=== PATIENT | female | born 1970 | race Hispanic/Latino ===

== ENCOUNTER 2017-08-08 13:43 | Emergency (ER) | payer MEDICARE ==
[2017-08-08 13:43] VITALS: BMI 29.8
[2017-08-08 14:14] VITALS: PULSE 70; RESP 18; TEMP 98.1; O2SAT 98
--- NOTE | 2017-08-08 15:13 | ED PDOC ---
HPI: General Adult Time Seen by Provider: 08/08/17 15:12 Chief Complaint (Nursing): Trauma Chief Complaint (Provider): HEADACHE/NECK PAIN History Per: Patient (46 Y/O FEMALE FELL YESTERDAY TRIP AND LAND BY CHAIR. NOTES PAIN BY NECK AND HEAD. UNABLE TO SEE DR. [facility]ERRA [facility] TODAY DUE TO PAIN. TOOK MOTRIN/BACLOFEN AT 8AM WITHOUT RELIEF.) Past Medical History Reviewed: Historical Data, Nursing Documentation, Vital Signs Vital Signs: Last Vital Signs Temp 98.1 F 08/08/17 14:09 Pulse 70 08/08/17 14:09 Resp 18 08/08/17 14:09 BP 136/96 H 08/08/17 17:36 Pulse Ox 98 08/08/17 17:32 - Medical History PMH: Anxiety, Asthma, Back Problems (chronic low back pain), Depression, Diabetes, HTN, Hypercholesterolemia, Migraine Denies: HIV, Chronic Kidney Disease - Surgical History Surgical History: Back Surgery, Cholecystectomy (pt. states in either November/December 2015) - Family History Family History: States: Unknown Family Hx - Home Medications Home Medications: Ambulatory Orders Medication Instructions Recorded ALPRAZolam [Xanax] 1 mg PO TID PRN 08/18/14 Albuterol Sulfate [Proair Hfa] 2 puff IH Q6H PRN 03/26/15 Enalapril Maleate 20 mg PO DAILY 09/23/15 Oxycodone HCl/Acetaminophen 1 tab PO Q8H PRN 09/23/15 [Percocet 10-325 mg Tablet] ALPRAZolam [Xanax] 1 mg PO TID PRN #90 tab 09/02/16 Albuterol HFA [Ventolin HFA 90 2 puff INH RQ4 PRN #0 inhaler 09/02/16 mcg/actuation (8 g)] Cyclobenzaprine [Flexeril] 10 mg PO TID PRN #60 tab 09/02/16 Enalapril Maleate [Vasotec] 20 mg PO DAILY tab 09/02/16 Gabapentin [Neurontin] 300 mg PO TID #90 cap 09/02/16 MetFORMIN [glucoPHAGE] 1,000 mg PO BIDWM #60 tab 09/02/16 SITagliptin [Januvia] 100 mg PO DAILY #30 tab 09/02/16 Naproxen 1 tab PO Q12 PRN #10 tab 08/08/17 - Allergies Allergies/Adverse Reactions: Allergies Allergy/AdvReac Type Severity Reaction Status Date / Time No Known Allergies Allergy Verified 05/17/15 22:19 Review of Systems ROS Statement: Except As Marked, All Systems Reviewed And Found Negative Physical Exam - Reviewed Nursing Documentation Reviewed: Yes Vital Signs Reviewed: Yes - Physical Exam Appears: Positive for: Well, Non-toxic, No Acute Distress Head Exam: Positive for: ATRAUMATIC, NORMAL INSPECTION, NORMOCEPHALIC Skin: Positive for: Normal Color, Warm, DRY Eye Exam: Positive for: EOMI, Normal appearance, PERRL ENT: Positive for: Normal ENT Inspection Neck: Positive for: Normal (PARACERVICAL TENDERNESS), Painless ROM Cardiovascular/Chest: Positive for: Regular Rate, Rhythm Respiratory: Positive for: CNT, Normal Breath Sounds Gastrointestinal/Abdominal: Positive for: Normal Exam, Bowel Sounds, Soft Pelvic Exam: Positive for: Other (LEFT LOWER PARALUMBAR TENDERNESS) Back: Positive for: Normal Inspection Extremity: Positive for: Normal ROM Neurologic/Psych: Positive for: Alert, Oriented - ECG O2 Sat by Pulse Oximetry: 98 - Progress ED Course And Treament: HEAD INJURY: NAD CT C SPINE: NO ACUTE FX DILAUDID 1 MG IM X 1 DOSE REPEAT BP 130/96 PATIENT NOTES H/O MIGRAINES AND PERSISTENT HEADACHE DESPITE DILAUDID. REGLAN 10 MG IV X 1 DOSE ORDERED/ NS 1 LITER WIDE OPEN ORDERED PATIENT UPON RE-EVALUATION BY NURSE STATES SHE WOULD PREFER TO GO HOME AND TAKE MOTRIN THEN. Disposition - Clinical Impression Clinical Impression: Head injury - Patient ED Disposition Is Patient to be Admitted: No - Disposition Disposition: Routine/Home Disposition Time: 17:22 Condition: FAIR Prescriptions: Naproxen 1 tab PO Q12 PRN #10 tab PRN Reason: Pain, Moderate (4-7) Instructions: Head Injury (ED), Chronic Back Pain (ED) Forms: [employer] ([place]ian)
--- NOTE | 2017-08-08 17:11 | CT ---
PROCEDURE: CT HEAD WITHOUT CONTRAST. HISTORY: Head injury COMPARISON: 05/17/2015 TECHNIQUE: Axial computed tomography images were obtained through the head/brain without intravenous contrast. Radiation dose: Total exam DLP = 833.10 mGy-cm. This CT exam was performed using one or more of the following dose reduction techniques: Automated exposure control, adjustment of the mA and/or kV according to patient size, and/or use of iterative reconstruction technique. FINDINGS: HEMORRHAGE: No intracranial hemorrhage. BRAIN: No mass effect or edema. No atrophy or chronic microvascular ischemic changes. VENTRICLES: Unremarkable. No hydrocephalus. CALVARIUM: Unremarkable. PARANASAL SINUSES: Unremarkable as visualized. No significant inflammatory changes. MASTOID AIR CELLS: Unremarkable as visualized. No inflammatory changes. OTHER FINDINGS: None. IMPRESSION: No acute intracranial abnormalities. No significant findings to account for the clinical presentation. No significant interval change compared to the prior examination(s).
--- NOTE | 2017-08-08 17:15 | CT ---
PROCEDURE: CT Cervical Spine without contrast HISTORY: Head injury COMPARISON: 10/29/2012. TECHNIQUE: Axial computed tomography images were obtained of the cervical spine without the use of intravenous contrast. Coronal and sagittal reformatted images were created and reviewed. Radiation dose: Total exam DLP = 575.80 mGy-cm. This CT exam was performed using one or more of the following dose reduction techniques: Automated exposure control, adjustment of the mA and/or kV according to patient size, and/or use of iterative reconstruction technique. FINDINGS: VERTEBRAE: No fracture. Normal alignment. No destructive bony lesion. DISCS/SPINAL CANAL/NEURAL FORAMINA: No significant central canal or neural foraminal stenosis. Discs heights are grossly preserved. PARASPINAL SOFT TISSUES: Unremarkable. OTHER FINDINGS: None. IMPRESSION: Unremarkable CT of the cervical spine.
[2017-08-08 17:36] VITALS: BP 136/96
[2017-08-08] MEDS: Sodium Chloride 0.9% 1,000 ML IV STA (18:28)
== END 2017-08-08 18:35 | disposition home or self-care (01) ==
LOC: H.ER 13:43
DX: S09.90XA Unspecified injury of head, initial encounter (principal); W19.XXXA Unspecified fall, initial encounter; Y92.89 Other specified places as the place of occurrence of the external cause; E11.9 Type 2 diabetes mellitus without complications; E78.00 Pure hypercholesterolemia, unspecified; I10 Essential (primary) hypertension; Z79.84 Long term (current) use of oral hypoglycemic drugs
CPT/HCPCS: 70450; 72125; 81025; 96372; 99284; J1170

== ENCOUNTER 2017-08-31 10:33 | Day surgery (SDC) | payer MEDICARE ==
[2017-08-25 13:55] VITALS: BMI 30.9
[2017-08-31 11:25] VITALS: RESP 18
[2017-08-31] MEDS ORDERED: Lidocaine 1% Inj (20ml) ONE (12:02)
[2017-08-31] MEDS ORDERED: MethylPREDNISolone Depo 40 mg/ml Inj ONE (12:02)
[2017-08-31] MEDS ORDERED: Iohexol 300 10 ML ONE (12:02)
[2017-08-31] MEDS ORDERED: Bupivacaine HCl 0.25% PF (10 ml) Inj ONE (12:02)
[2017-08-31] MEDS ORDERED: methylPREDNISolone Depo 80 mg/ml Inj ONE (12:02)
[2017-08-31] MEDS ORDERED: Bupivacaine HCl 0.5% PF (10 ml) Inj ONE (12:05)
[2017-08-31] MEDS ORDERED: Midazolam 2 MG/2 ML VIAL ONE (12:10)
[2017-08-31] MEDS ORDERED: Propofol 10 mg/ml Inj (20 ML) ONE (12:10)
[2017-08-31] MEDS ORDERED: Lactated Ringer's 1,000 ML IV ONE (12:19)
[2017-08-31] MEDS ORDERED: HYDROmorphone 0.5 mg/0.5 ml ISec IVP PRN (12:45)
[2017-08-31] MEDS ORDERED: Lactated Ringer's 1,000 ML IV SCH (12:45)
[2017-08-31 14:24] VITALS: BP 150/81; PULSE 82; TEMP 97.3; O2SAT 98
--- NOTE | 2017-08-31 14:59 | OP ---
PROCEDURE DATE: 08/31/2017 PREOPERATIVE DIAGNOSES: Sacroiliitis and coccydynia. POSTOPERATIVE DIAGNOSES: Sacroiliitis and coccydynia. PROCEDURE: Left sacroiliac joint steroid injection and also sacrococcygeal injection. SURGEON: Jackie Matthews MD ANESTHESIOLOGIST: Reggie Henson MD TYPE OF ANESTHESIA: Monitored anesthesia care. COMPLICATIONS: None. SPECIMENS: None. DESCRIPTION OF PROCEDURE: As follows. After we had discussion of the procedure with the patient including its risks, benefits, alternatives, outcome data and possibility of no effect or increased pain, the patient consented to the procedure. She denied any recent infection, bleeding tendencies or being on anticoagulants, a decision was then made to proceed to the OR. The patient was placed on a fluoroscopy table in a prone position with 2 pillows underneath her abdomen. The back was prepped and draped in a usual sterile fashion and a sterile technique was adhered to during the entire procedure. The left sacroiliac joint was first visualized on the anterior posterior view. The target is at the posterior opening of the inferior pole of the sacroiliac joint. The skin overlying this area was then infiltrated with 1% lidocaine using a 25-gauge needle. Subsequently, a 22-gauge 3.5-inch spinal needle was then incrementally advanced under fluoroscopic guidance until tip of the needle worked into the joint capsule. After appropriate placement of the needle, approximately 0.5 mL of Isovue contrast was injected to show appropriate uptake of the contrast. After doing so, approximately 3 mL of 0.5% Marcaine and Depo-Medrol mixture was injected. The needle was then removed. Then the fluoroscopy was move to a lateral position. The skin overlying the sacrococcygeal joint was then identified and marked. Then, a 25-gauge needle was used to infiltrate the skin with 1% lidocaine. Then, a 25-gauge 3.5-inch spinal needle was then inserted in line with opening under fluoroscopic guidance until tip of the needle lays approximately 3 mm anterior to the anterior surface of the sacrococcygeal ligament. After appropriate placement of the needle and after negative aspiration for blood or other contents, approximately 0.5 mL of Isovue contrast was injected showing appropriate spread. At this point, approximately 5 mL of 0.25% Marcaine and Depo-Medrol mixture was injected. At the end of the case, the patient's back was cleaned and dried, and bandages were applied. The patient was then transferred to recovery area in good condition without any signs of MEDICAL REIMBURSEMENT MANAGER toxicity or any neurological deficit. She will follow up as an outpatient. En-Zaid Matthews MD
--- NOTE | 2017-09-02 19:12 | RAD ---
PROCEDURE: Intraoperative Fluoroscopy. HISTORY: Pain Management FINDINGS: Fluoroscopic assistance was provided for pain management. Please refer to the operative report from LADARIUS Giang. 58.9 seconds of fluoro time was utilized.
== END 2017-08-31 15:00 | disposition home or self-care (01) ==
LOC: H.OPSURG 10:33
PROVIDERS: ATTEND Anesthesiology
DX: M46.1 Sacroiliitis, not elsewhere classified (principal); M53.3 Sacrococcygeal disorders, not elsewhere classified; J45.909 Unspecified asthma, uncomplicated; E11.9 Type 2 diabetes mellitus without complications; I10 Essential (primary) hypertension
CPT/HCPCS: 82948; G0260; J1030; J1170; J2001; J2250; J2704; J3010; J7120; Q9967

== ENCOUNTER 2017-11-09 09:05 | Inpatient (IN) | payer MEDICARE ==
[2017-11-09 09:05] VITALS: BMI 30.9
[2017-11-09 09:40] VITALS: RESP 18
[2017-11-09] MEDS ORDERED: Sodium Chloride 0.9% 1,000 ML IV STA (09:41)
--- NOTE | 2017-11-09 09:49 | ED PDOC ---
HPI: Back Time Seen by Provider: 11/09/17 09:27 Chief Complaint (Nursing): Back Pain Chief Complaint (Provider): back pain History Per: Patient History/Exam Limitations: no limitations Onset/Duration Of Symptoms: Days (2 weeks worsening) Additional History Per: Patient Additional Complaint(s): Pt. with increasing back pain. Oral meds not helping. Spoke with Dr. Matthews and advised to come to the ER. Pt. with pain worsening after bending down. Pt. with chronic back pain for a long time. No numbness, tingles, weakness, headaches, abd pain, incontinence, constipation. No chest pain. Past Medical History Reviewed: Nursing Documentation, Vital Signs Vital Signs: Last Vital Signs Temp 98 F 11/09/17 09:35 Pulse 96 H 11/09/17 09:35 Resp 18 11/09/17 09:35 BP 148/97 H 11/09/17 09:35 Pulse Ox 96 11/09/17 09:35 - Medical History PMH: Anxiety, Arthritis (spine/knees), Asthma, Back Problems (chronic low back pain), Depression, Diabetes, HTN, Hypercholesterolemia, Migraine Denies: HIV, Chronic Kidney Disease - Surgical History Surgical History: Back Surgery, Cholecystectomy - Family History Family History: States: Unknown Family Hx - Home Medications Home Medications: Ambulatory Orders Medication Instructions Recorded Enalapril Maleate [Vasotec] 20 mg PO DAILY 08/31/17 GlipiZIDE [Glucotrol] 10 mg PO DAILY 08/31/17 Oxycodone HCl/Acetaminophen 5 - 325 mg PO Q4 PRN 08/31/17 [Oxycodone-Acetaminophen 5-325] - Allergies Allergies/Adverse Reactions: Allergies Allergy/AdvReac Type Severity Reaction Status Date / Time No Known Allergies Allergy Verified 11/09/17 09:34 Review of Systems ROS Statement: Except As Marked, All Systems Reviewed And Found Negative Musculoskeletal: Positive for: Back Pain Physical Exam - Reviewed Nursing Documentation Reviewed: Yes Vital Signs Reviewed: Yes - Physical Exam Appears: Positive for: Non-toxic, No Acute Distress Head Exam: Positive for: ATRAUMATIC, NORMAL INSPECTION, NORMOCEPHALIC Skin: Positive for: Normal Color, Warm, DRY Eye Exam: Positive for: EOMI, Normal appearance, PERRL ENT: Positive for: Normal ENT Inspection Neck: Positive for: Normal, Painless ROM Cardiovascular/Chest: Positive for: Regular Rate, Rhythm Respiratory: Positive for: CNT, Normal Breath Sounds Gastrointestinal/Abdominal: Positive for: Normal Exam, Soft Back: Positive for: Other (mild tender across lower) Extremity: Positive for: Normal ROM (with pain b/l to the back), Other ( straight pos 45* b/l). Negative for: Tenderness, Pedal Edema Neurologic/Psych: Positive for: Alert, Oriented - ECG O2 Sat by Pulse Oximetry: 96 - Progress ED Course And Treament: 950: Spoke with Dr. Matthews. Pt. well known to his service. Will admit under his service for possible injection for back. Stable. AAOx3. Disposition - Clinical Impression Clinical Impression: Low back pain - Patient ED Disposition Is Patient to be Admitted: Yes Counseled Patient/Family Regarding: Studies Performed, Diagnosis - Disposition Disposition Time: 09:00 Condition: FAIR - Pt Status Changed To: Hospital Disposition Of: Observation - POA Present On Arrival: None
[2017-11-09 10:22] LABS: BASO # 0.1 K/uL (0.0-0.2); BASO % 1.3 % (0.0-2.0); EOS # 0.1 K/uL (0.0-0.7); EOS % 1.2 % (0.0-4.0); HEMOGLOBIN 13.5 g/dL (12.0-16.0); LYMPH # 2.7 K/uL (1.0-4.3); LYMPH % 23.3 % (20.0-40.0); MEAN CELL VOLUME 81.8 fl (81.0-99.0); MEAN CORPUSCULAR HEMOGLOBIN 27.3 pg (27.0-31.0); MEAN CORPUSCULAR HGB CONC 33.4 g/dL (33.0-37.0); MONO # 0.8 K/uL (0.0-0.8); NEUT # 7.7 K/uL (1.8-7.0); NEUT % 67.2 % (50.0-75.0); NRBC % 0.1 % (0.0-0.0); RBC 4.96 Mil/uL (3.80-5.20); RED CELL DISTRIBUTION WIDTH 15.5 % (11.5-14.5); WHITE BLOOD COUNT 11.4 K/uL (4.8-10.8)
[2017-11-09 10:27] LABS: BLOOD UREA NITROGEN 20 mg/dl (7-17); CALCIUM 9.4 mg/dL (8.4-10.2); GFR AFRICAN-AMERICAN > 60; GFR NON-AFRICAN AMERICAN > 60
[2017-11-09] MEDS ORDERED: Bupivacaine HCl 0.25% PF (10 ml) Inj ONE (10:36)
[2017-11-09] MEDS ORDERED: MethylPREDNISolone Depo 40 mg/ml Inj ONE (10:36)
[2017-11-09] MEDS ORDERED: Bupivacaine HCl 0.5% PF (30 ml) Inj ONE (10:36)
[2017-11-09] MEDS ORDERED: Lidocaine 2% Inj (20ml) ONE (10:37)
[2017-11-09] MEDS ORDERED: Lidocaine 1% 20 MG/2 ML PF AMP ONE (10:37)
[2017-11-09] MEDS ORDERED: Iohexol 300 10 ML ONE (10:40)
[2017-11-09] MEDS ORDERED: Propofol 10 mg/ml Inj (20 ML) ONE (10:57)
[2017-11-09] MEDS ORDERED: Lactated Ringer's 1,000 ML IV ONE (11:00)
[2017-11-09] MEDS ORDERED: Bupivacaine HCl 0.5% PF (10 ml) Inj IJ ONE (11:07)
[2017-11-09] MEDS ORDERED: Iohexol 300 10 ML IJ ONE (11:07)
[2017-11-09] MEDS ORDERED: methylPREDNISolone Depo 80 mg/ml Inj IM ONE (11:07)
[2017-11-09] MEDS ORDERED: Lidocaine 2% Inj (20ml) IJ ONE (11:07)
[2017-11-09] MEDS ORDERED: Bupivacaine HCl 0.25% PF (30 ml) Inj IJ ONE (11:07)
[2017-11-09] MEDS ORDERED: HYDROmorphone 0.5 mg/0.5 ml ISec IVP PRN (11:26)
[2017-11-09 11:30] VITALS: O2SAT 100
[2017-11-09] MEDS ORDERED: Sodium Chloride 0.9% 1,000 ML IV SCH (11:30)
--- NOTE | 2017-11-09 12:26 | RAD ---
PROCEDURE: Intraoperative Fluoroscopy. HISTORY: Pain Management FINDINGS: Fluoroscopic assistance was provided for pain management. Please refer to the operative report from LADARIUS Giang. Total fluoroscopic time (continuous mode) utilized during the procedure 39.9 (seconds). Total exam DLP: (mGy) 11.35
[2017-11-09 12:45] VITALS: BP 144/93; PULSE 72; TEMP 97.8
--- NOTE | 2017-11-09 13:00 | OP ---
PROCEDURE DATE: 11/09/2017 PREOPERATIVE DIAGNOSIS: Failed back syndrome. POSTOPERATIVE DIAGNOSIS: Failed back syndrome. PROCEDURE: Right L5 to S1 transforaminal epidural steroid injection and right sacroiliac joint steroid injection. SURGEON: Jackie Matthews MD TYPE OF ANESTHESIA: Monitored anesthesia care. ANESTHESIOLOGIST: Phil Nicole MD COMPLICATIONS: None. SPECIMENS: None. DESCRIPTION OF PROCEDURE: As follows. After we had discussion of the procedure with the patient including its risks, benefits, alternatives, outcome data, possibility of no effect or increased pain, the patient consented to the procedure. She denied any recent infection, bleeding tendencies or being on anticoagulants, a decision was then made to proceed to the OR. The patient was placed on a fluoroscopy table in a prone position with 2 pillows underneath her abdomen. The back was prepped and draped in a usual sterile fashion and a sterile technique was adhered during the entire procedure. The right sacroiliac joint injection was performed first. The target is determined to be at the border or at the posterior opening to the right sacroiliac joint. The skin overlying this area was then infiltrated with 1% lidocaine using a 25-gauge needle. Subsequently, a 22-gauge 3.5-inch spinal needle was then incrementally advanced under fluoroscopic guidance until the tip of the needle walk into the joint capsule. After satisfactory positioning of the needles, approximately 0.5 mL of Isovue contrast was injected showing appropriate spread of the joint line. At this point,approximately 3 mL of 0.5% Marcaine and Depo-Medrol mixture was injected. The needle was then removed. Then, the L5-S1 transforaminal epidural steroid injection was performed on the right side. The L5 vertebral body was first identified in the anterior-posterior view. Angulation towards the right at approximately 25 degrees was used to maximize the visualization of the right L5 pedicle. The skin overlying the 6 o'clock position of the pedicle was then infiltrated with 1% lidocaine using a 25-gauge needle. Subsequently, a 22-gauge 3.5-inch spinal needle was then incrementally advanced under fluoroscopic guidance until the tip of the needle walk into the intervertebral foramen. This was confirmed by injecting approximately 0.5 mL of Isovue contrast showing appropriate epidural and nerve root spread without any signs of CSF or intravenous involvement. At this point, approximately 3 mL of 0.25% Marcaine and Depo-Medrol mixture was injected. The needle was then removed. The patient's back was cleaned and dried. Bandages were applied. The patient was then transferred to recovery area in good condition without any signs of DIRECTOR OF FIRST IMPRESSIONS toxicity or any neurological deficits. She will have a followup in our office in approximately 2 to 4 weeks. En-Zaid Matthews MD
== END 2017-11-09 13:20 | disposition home or self-care (01) | DRG 93 ==
LOC: H.ER 09:05 → OBSVTOIN 09:55 → H.ERHOLD 09:55
PROVIDERS: ADMIT Anesthesiology; ATTEND Anesthesiology
PROC: 3E0S33Z Introduction of Anti-inflammatory into Epidural Space, Percutaneous Approach (ICD-10-PCS; 2017-11-09)
PROC: 3E0S3BZ Introduction of Anesthetic Agent into Epidural Space, Percutaneous Approach (ICD-10-PCS; 2017-11-09)
PROC: 3E0R33Z Introduction of Anti-inflammatory into Spinal Canal, Percutaneous Approach (ICD-10-PCS; principal; 2017-11-09 11:00)
DX: G89.29 Other chronic pain (principal); M54.5 Low back pain; I10 Essential (primary) hypertension; E11.9 Type 2 diabetes mellitus without complications; E78.00 Pure hypercholesterolemia, unspecified; J45.909 Unspecified asthma, uncomplicated; F41.9 Anxiety disorder, unspecified; M19.90 Unspecified osteoarthritis, unspecified site; G43.909 Migraine, unspecified, not intractable, without status migrainosus; Z79.84 Long term (current) use of oral hypoglycemic drugs

== ENCOUNTER 2018-01-31 08:33 | Observation (INO) | payer MEDICARE ==
--- NOTE | 2018-01-31 09:02 | ED PDOC ---
HPI: Back Time Seen by Provider: 01/31/18 08:42 Chief Complaint (Nursing): Back Pain History Per: Patient (Low back pain worse over past few days. No weakness) Past Medical History Vital Signs: Last Vital Signs Temp 98 F 01/31/18 08:45 Pulse 75 01/31/18 08:45 Resp 20 01/31/18 08:45 BP 157/99 H 01/31/18 08:45 Pulse Ox 95 01/31/18 08:45 - Medical History PMH: Anxiety, Arthritis (spine/knees), Asthma, Back Problems (chronic low back pain), Depression, Diabetes, HTN, Hypercholesterolemia, Migraine Denies: HIV, Chronic Kidney Disease - Surgical History Surgical History: Back Surgery, Cholecystectomy - Family History Family History: States: Unknown Family Hx - Home Medications Home Medications: Ambulatory Orders Medication Instructions Recorded Enalapril Maleate [Vasotec] 20 mg PO DAILY 08/31/17 GlipiZIDE [Glucotrol] 10 mg PO DAILY 08/31/17 Oxycodone HCl/Acetaminophen 5 - 325 mg PO Q6 08/31/17 [Oxycodone-Acetaminophen 5-325] - Allergies Allergies/Adverse Reactions: Allergies Allergy/AdvReac Type Severity Reaction Status Date / Time No Known Allergies Allergy Verified 11/09/17 09:34 Review of Systems Constitutional: Negative for: Fever Musculoskeletal: Positive for: Back Pain Physical Exam - Reviewed Nursing Documentation Reviewed: Yes Vital Signs Reviewed: Yes - Physical Exam Appears: Positive for: Non-toxic, No Acute Distress Head Exam: Positive for: ATRAUMATIC, NORMAL INSPECTION, NORMOCEPHALIC Skin: Positive for: Normal Color, Warm, DRY Eye Exam: Positive for: Normal appearance Neck: Positive for: Normal Back: Positive for: Normal Inspection, Muscle Spasm. Negative for: Vertebral Tenderness Extremity: Positive for: Normal ROM Neurologic/Psych: Positive for: Alert, Oriented - ECG O2 Sat by Pulse Oximetry: 95 Disposition - Clinical Impression Clinical Impression: Back disorder, Back pain - Patient ED Disposition Is Patient to be Admitted: Yes - Disposition Disposition Time: 09:03 Condition: FAIR - Pt Status Changed To: Hospital Disposition Of: Observation - POA Present On Arrival: None
[2018-01-31] MEDS ORDERED: methylPREDNISolone Depo 80 mg/ml Inj ONE (10:38)
[2018-01-31] MEDS ORDERED: Lidocaine 2% MPF (5 ml) Inj ONE (10:38)
[2018-01-31] MEDS ORDERED: Iohexol 300 10 ML ONE (10:39)
[2018-01-31] MEDS ORDERED: Lidocaine 2% MPF (5 ml) Inj INJ ONE (11:25)
[2018-01-31] MEDS ORDERED: Iohexol 300 10 ML IJ ONE (11:25)
[2018-01-31] MEDS ORDERED: Bupivacaine 0.25% Inj(30mL) IJ ONE (11:25)
[2018-01-31] MEDS ORDERED: methylPREDNISolone Depo 80 mg/ml Inj IM ONE (11:25)
[2018-01-31] MEDS ORDERED: Sodium Chloride 0.9% 1,000 ML IV SCH (11:45)
[2018-01-31] MEDS: HYDROmorphone 0.5 mg/0.5 ml ISec IVP PRN ×2 (12:10→12:25)
[2018-01-31 12:11] VITALS: RESP 18
[2018-01-31 12:13] VITALS: O2SAT 100
--- NOTE | 2018-01-31 12:40 | RAD ---
Date of service: 01/31/2018 PROCEDURE: Intraoperative Fluoroscopy. HISTORY: EPIDURAL FINDINGS: Fluoroscopic assistance was provided for sacral analgesic injection. Please refer to the operative report from LADARIUS Giang. 51.2 seconds of fluoroscopy time was utilized with a cumulative radiation dose of 16.14 mGy.
[2018-01-31 13:48] VITALS: BP 142/67; PULSE 75; TEMP 98
--- NOTE | 2018-02-01 00:31 | OP ---
PROCEDURE DATE: 01/31/2018 PREOPERATIVE DIAGNOSIS: Failed back syndrome. POSTOPERATIVE DIAGNOSIS: Failed back syndrome. PROCEDURE: Ganglion impar injection and also left sacroiliac joint steroid injection. ANESTHESIOLOGIST: Thomas Mayberry MD SURGEON: Jackie Matthews MD ANESTHESIA TYPE: Monitored anesthesia care. COMPLICATIONS: None. SPECIMEN: None. DESCRIPTION OF PROCEDURE: As follows. After we had discussion of the procedure with the patient including its risks, benefits, alternative, outcome data, possibility of no effect or increased pain, patient consented to the procedure. She denies any recent infection, bleeding tendencies, or being on anticoagulants. The decision was then made to proceed to the OR. The patient was placed on the fluoroscopy table in a prone position with two pillows underneath her abdomen. The back was prepped and draped in the usual sterile fashion, and sterile technique was adhered during the entire procedure. The left sacroiliac joint was first visualization in the anterior posterior view. The target is the posterior opening of the inferior pole of the left sacroiliac joint. The skin overlying this area was then infiltrated with 1% lidocaine using a 25-gauge needle. Subsequently, a 22-gauge 3.5-inch spinal needle was incrementally advanced under fluoroscopic guidance until the tip of needle walked into the joint capsule. After approximate placement of the needle, approximately 0.5 mL of Isovue contrast was injected to confirm needle placement. After doing so, approximately 3 mL of 0.25% Marcaine and Depo-Medrol mixture was injected. The needle was then removed. Then, the sacrococcygeal junction was first visualized on the anteroposterior view. Lateral fluoroscopy view was obtained to visualize the opening to this region. The skin overlying the border of the sacrococcygeal ligament was then infiltrated with 1% lidocaine using 25-gauge needle. Subsequently, a 25-gauge 3.5-inch spinal needle was incrementally advanced under fluoroscopic guidance until the tip of the needle passed to the joint. The needle was advanced under fluoroscopic guidance until it is above 5 mm anterior to the anterior border of the joint. After negative aspiration, approximately 0.5 mL of Isovue contrast was injected, showing appropriate spread anterior to the sacrum and also in the sacrococcygeal ligament. After doing so, approximately 5 mL of 0.25% Marcaine and Depo-Medrol mixture was injected. The needle was then removed. The patient's back was cleaned and dry bandages were applied. The patient was then transferred to the recovery area in good condition without any signs of ALIGNMENT SPECIALIST toxicity or any neurological deficit. She was to follow up in the office in approximately two to four weeks. En-Zaid Matthews MD
== END 2018-01-31 13:50 | disposition home or self-care (01) ==
LOC: H.ER 08:33 → H.ERHOLD 09:16
PROVIDERS: ADMIT Anesthesiology; ATTEND Anesthesiology
DX: M96.1 Postlaminectomy syndrome, not elsewhere classified (principal); E11.9 Type 2 diabetes mellitus without complications; E78.00 Pure hypercholesterolemia, unspecified; I10 Essential (primary) hypertension; J45.909 Unspecified asthma, uncomplicated; F32.9 Major depressive disorder, single episode, unspecified; F41.9 Anxiety disorder, unspecified; G43.909 Migraine, unspecified, not intractable, without status migrainosus; G89.29 Other chronic pain; M47.9 Spondylosis, unspecified; M17.0 Bilateral primary osteoarthritis of knee
CPT/HCPCS: 27096; 64520; 81025; 82948; 96374; 99283; G0378; J1040; J1170; J1885; J2704; J7030; Q9967

== ENCOUNTER 2018-08-22 07:59 | Day surgery (SDC) | payer MEDICARE ==
[2018-08-22] MEDS ORDERED: Sodium Chloride 0.9% 1,000 ML IV STA (08:25)
--- NOTE | 2018-08-22 08:39 | ED PDOC ---
HPI: Back Time Seen by Provider: 08/22/18 08:16 Chief Complaint (Nursing): Back Pain Chief Complaint (Provider): Back Pain History Per: Patient History/Exam Limitations: no limitations Onset/Duration Of Symptoms: Other (chronic) Current Symptoms Are (Timing): Still Present Quality Of Discomfort: "Pain" Exacerbating Factor(s): Movement Additional Complaint(s): 48 year old female with PMHx of HTN and diabetes presents to the ED for an evaluation of chronic back pain and pain on the coccyx area. Patient states she was supposed to see Dr. Matthews for pain management. At home she takes Percocet, Enalapril, and Lipocide. Also reports of intermittent incontinence since her back surgery. Otherwise, the patient denies fever, chills, numbness, tingling, abdominal pain, nausea, vomiting, nausea, chest pain, shortness of breath, cough, dysuria, frequency or rash. PMD: Cody Jimenez Past Medical History Reviewed: Historical Data, Nursing Documentation, Vital Signs Vital Signs: Last Vital Signs Temp 97.5 F L 08/22/18 08:03 Pulse 82 08/22/18 08:03 Resp 17 08/22/18 08:03 BP 123/81 08/22/18 08:03 Pulse Ox 97 08/22/18 08:03 - Medical History PMH: Anxiety, Arthritis (spine/knees), Asthma, Back Problems (chronic low back pain), Depression, Diabetes, HTN, Hypercholesterolemia, Migraine Denies: HIV, Chronic Kidney Disease - Surgical History Surgical History: Back Surgery, Cholecystectomy - Family History Family History: States: Unknown Family Hx - Social History Current smoker - smoking cessation education provided: No Alcohol: None Drugs: Denies - Home Medications Home Medications: Ambulatory Orders Medication Instructions Recorded Enalapril Maleate [Vasotec] 10 mg PO DAILY 08/31/17 RX: GlipiZIDE [Glucotrol] 10 mg PO DAILY 08/31/17 Oxycodone HCl/Acetaminophen 1 tab PO Q8 PRN 01/31/18 [Endocet 10-325 mg Tablet] - Allergies Allergies/Adverse Reactions: Allergies Allergy/AdvReac Type Severity Reaction Status Date / Time No Known Allergies Allergy Verified 11/09/17 09:34 Review of Systems ROS Statement: Except As Marked, All Systems Reviewed And Found Negative Constitutional: Negative for: Fever, Chills Cardiovascular: Negative for: Chest Pain Respiratory: Negative for: Cough, Shortness of Breath Gastrointestinal: Negative for: Nausea, Vomiting, Abdominal Pain, Diarrhea Genitourinary Female: Positive for: Incontinence (intermittent since her surgery). Negative for: Dysuria, Frequency Musculoskeletal: Positive for: Back Pain, Other (coccyx pain) Skin: Negative for: Rash Neurological: Negative for: Numbness, Other (tingling) Physical Exam - Reviewed Nursing Documentation Reviewed: Yes Vital Signs Reviewed: Yes - Physical Exam Appears: Positive for: Non-toxic Head Exam: Positive for: ATRAUMATIC, NORMAL INSPECTION, NORMOCEPHALIC Skin: Positive for: Normal Color, Warm, Dry. Negative for: Rash Eye Exam: Positive for: EOMI, Normal appearance, PERRL ENT: Positive for: Normal ENT Inspection Neck: Positive for: Normal, Painless ROM, Supple. Negative for: Decreased ROM Cardiovascular/Chest: Positive for: Regular Rate, Rhythm. Negative for: Murmur Respiratory: Positive for: Normal Breath Sounds. Negative for: Decreased Breath Sounds, Wheezing, Respiratory Distress Gastrointestinal/Abdominal: Positive for: Normal Exam, Soft. Negative for: Tenderness, Guarding, Rebound Back: Positive for: Other (mild tenderness on the coccyx) Extremity: Positive for: Normal ROM. Negative for: Deformity Neurologic/Psych: Positive for: Alert, Oriented (x3) - ECG O2 Sat by Pulse Oximetry: 97 (RA) Pulse Ox Interpretation: Normal Medical Decision Making Medical Decision Making: Time: 823 Plan: ED Urine Normal saline 1000 mls/hr POC [glucose, blood, POC] Reevaluation [address] Matthews and patient will be admitted to his services for back pain Scribe Attestation: Documented by Nasrin Buck, acting as a scribe for Sinan Martinez MD. Provider Scribe Attestation: All medical record entries made by the Scribe were at my direction and personally dictated by me. I have reviewed the chart and agree that the record accurately reflects my personal performance of the history, physical exam, medical decision making, and the department course for this patient. I have also personally directed, reviewed, and agree with the discharge instructions and disposition. Disposition - Clinical Impression Clinical Impression: Back pain - Patient ED Disposition Is Patient to be Admitted: Yes Counseled Patient/Family Regarding: Diagnosis - Disposition Disposition Time: 11:18 Condition: FAIR - Pt Status Changed To: Hospital Disposition Of: Observation - POA Present On Arrival: None
[2018-08-22] MEDS ORDERED: MethylPREDNISolone Depo 40 mg/ml Inj ONE (09:16)
[2018-08-22] MEDS ORDERED: Iohexol 300 10 ML ONE (09:16)
[2018-08-22] MEDS ORDERED: Lidocaine 2% Inj (20ml) ONE (09:17)
[2018-08-22] MEDS ORDERED: Bupivacaine 0.5% Inj(30mL) ONE (09:17)
[2018-08-22] MEDS ORDERED: Propofol 10 mg/ml Inj (20 ML) ONE ×2 (09:20→09:41)
[2018-08-22] MEDS ORDERED: Sodium Chloride 0.9% 1,000 ML IV ONE (09:46)
[2018-08-22] MEDS ORDERED: Lactated Ringer's 1,000 ML IV SCH (10:00)
[2018-08-22] MEDS: HYDROmorphone 0.5 mg/0.5 ml ISec IVP PRN ×3 (10:01→10:31)
[2018-08-22 12:07] VITALS: RESP 20; TEMP 97.8
[2018-08-22 12:37] VITALS: BP 137/73; PULSE 79; O2SAT 98
--- NOTE | 2018-08-22 15:20 | RAD ---
Date of service: 08/22/2018 PROCEDURE: Fluoroscopy up to 1 hr. HISTORY: PAIN MANAGEMENT COMPARISON: None TECHNIQUE: Standard protocol for this study/examination. FINDINGS: Total fluoroscopic time (continuous mode) utilized during the procedure 31.9 seconds. Total exam DLP: 5.66 (mGy). Submitted images from the current procedure: 3.0 IMPRESSION: Less than 1 hr fluoroscopic assistance provided during performance of the procedure.
--- NOTE | 2018-08-22 20:53 | OP ---
PROCEDURE DATE: 08/22/2018 PREOPERATIVE DIAGNOSIS: Failed back syndrome. POSTOPERATIVE DIAGNOSIS: Failed back syndrome. PROCEDURE: Ganglion of impar injection and left sacroiliac joint steroid injection. ANESTHESIOLOGIST: Reed Richard MD SURGEON: Jackie Matthews MD TYPE OF ANESTHESIA: Monitored anesthesia care. COMPLICATION: None. SPECIMEN: None. DESCRIPTION OF PROCEDURE: As follows: After discussion of the procedure with the patient including its risks, benefits, alternatives, outcome data, possibility of no effect or increased pain. The patient consented to the procedure. She denies any recent infection, bleeding tendencies, or being on anticoagulant. Decision was then made to proceed to the OR. The patient was placed on a fluoroscopy table in a prone position with two pillows underneath her abdomen. The back was prepped and draped in the usual sterile fashion, and sterile technique was adhered to during the entire procedure. The sacrococcygeal ligament was visualized from the anteroposterior view. The location was then marked, and the fluoroscopy was then turned towards the lateral position to guide a needle placement. The skin empirically overlying the sacrococcygeal opening was then infiltrated with 1% lidocaine using 25-gauge needle. Subsequently, a 25-gauge 3.5-inch spinal needle was then incrementally advanced under fluoroscopic guidance until tip of the needle pierced the sacrococcygeal ligament and the tip of the needle is placed at approximately 5 mm anterior to the sacrum. After appropriate placement of the needle, approximately 1 mL Isovue contrast was injected showing appropriate spread. At this point, approximately 5 mL of 0.5% Marcaine and Depo-Medrol mixture was injected. The needle was then removed. Then, the left sacroiliac joint was visualized on the anteroposterior view. oblique angle towards the ipsilateral side was then used to differentiate the posterior opening from the anterior opening. The target is at the inferior pole of the posterior opening of the left sacroiliac joint. The skin overlying this area was then infiltrated with 1% lidocaine using 25-gauge needle. Subsequently, a 22-gauge 3.5-inch spinal needle was incrementally advanced under fluoroscopic guidance until tip of the needle walked into the joint capsule. After appropriate placement of the needle, approximately 0.5 mL Isovue contrast was injected which showed spread up the joint line. At this point, approximately 5 mL of 0.5% Marcaine and Depo-Medrol mixture was injected. The needle was removed and the patient's back was cleaned and dry bandage was applied. The patient was then transferred to recovery area in good condition without any signs of CARD SELLER toxicity or any neurological deficit. She will be followed up in our office in approximately two to four weeks. En-Zaid Matthews MD
== END 2018-08-22 10:22 | disposition home or self-care (01) ==
LOC: H.ER 07:59 → H.SDS 08:29 → H.ERHOLD 08:29 → UNDOADMOB 08:29 → H.ER 09:26 → H.SDS 10:22 → UNDODISOB 13:05
PROVIDERS: ATTEND Anesthesiology
DX: M96.1 Postlaminectomy syndrome, not elsewhere classified (principal)
CPT/HCPCS: 81025; 82948; 99284; G0260; J1030; J1170; J1885; J2001; J2704; J7030; Q9967